=== PATIENT | female | born 1995 | race Caucasian/White ===

== ENCOUNTER 2017-07-26 21:07 | Emergency (ER) | payer OTHER ==
[~2017-07-26] VITALS: Ht 157.5 cm; Wt 52.2 kg
[~2017-07-26 21:07] MED LIST: AMOXICILLIN500 MG PO; DESPEC-DM TABL1 EACH PO; IRON1TAB4 PO; OSEL75CA PO; TUSSI PRES-B L120 M1 PO
[2017-07-27] MEDS ORDERED: IRON1TAB4 PO (03:23)
== END 2017-07-27 03:35 | disposition home or self-care (01) ==
LOC: ER 21:07
DX: K29.70 Gastritis, unspecified, without bleeding (principal); F06.4 Anxiety disorder due to known physiological condition

== ENCOUNTER 2017-12-23 16:19 | Emergency (ER) | payer OTHER ==
[~2017-12-23] VITALS: Ht 157.5 cm; Wt 57.2 kg
== END 2017-12-23 19:22 ==
LOC: ER 16:19
DX: N83.02 Follicular cyst of left ovary (principal); N93.8 Other specified abnormal uterine and vaginal bleeding

== ENCOUNTER 2018-02-18 15:48 | Emergency (ER) | payer OTHER ==
[~2018-02-18] VITALS: Ht 157.5 cm; Wt 55.8 kg
[2018-02-18] MEDS ORDERED: LORATADINE10 MG PO (18:49)
[2018-02-18] MEDS ORDERED: ZITHROMAX500 MG PO (18:49)
[2018-02-18] MEDS ORDERED: FLONASE ALLERG9.9 ML NASAL (18:49)
[2018-02-18] MEDS ORDERED: MUCINEX DM ER1 EAC1 PO (18:49)
== END 2018-02-18 18:56 | disposition home or self-care (01) ==
LOC: ER 15:48
DX: J06.9 Acute upper respiratory infection, unspecified (principal); J01.00 Acute maxillary sinusitis, unspecified

== ENCOUNTER 2019-04-06 13:11 | Emergency (ER) | payer OTHER ==
[~2019-04-06] VITALS: Ht 157.5 cm; Wt 54.9 kg
[~2019-04-06 13:11] MED LIST changes: +FLONASE ALLERG9.9 ML NASAL; +LORATADINE10 MG PO; +MUCINEX DM ER1 EAC1 PO; +ZITHROMAX500 MG PO
[2019-04-06] MEDS ORDERED: CLARITIN10 MG PO (15:52)
[2019-04-06] MEDS ORDERED: ZITHROMAX500 MG PO (15:52)
[2019-04-06] MEDS ORDERED: TUSNEL LIQUID178 ML PO (15:52)
== END 2019-04-06 16:00 | disposition home or self-care (01) ==
LOC: ER 13:11
DX: J06.9 Acute upper respiratory infection, unspecified (principal)

== ENCOUNTER 2019-08-08 20:33 | Emergency (ER) | payer OTHER ==
[~2019-08-08] VITALS: Ht 157.5 cm; Wt 55.3 kg
[~2019-08-08 20:33] MED LIST changes: +CLARITIN10 MG PO; +TUSNEL LIQUID178 ML PO
[2019-08-08] MEDS ORDERED: ZITHROMAX500 MG PO (21:44)
[2019-08-08] MEDS ORDERED: DOLOGEN CAPLET1 EACH PO (21:44)
[2019-08-08] MEDS ORDERED: TUSNEL LIQUID178 ML PO (21:44)
== END 2019-08-08 21:53 | disposition home or self-care (01) ==
LOC: ER 20:33
DX: J06.9 Acute upper respiratory infection, unspecified (principal); R51 Headache

== ENCOUNTER 2020-03-25 21:31 | Emergency (ER) | payer OTHER ==
[~2020-03-25] VITALS: Ht 157.5 cm; Wt 54.0 kg
[~2020-03-25 21:31] MED LIST changes: +DOLOGEN CAPLET1 EACH PO
[2020-03-26] MEDS ORDERED: ZOFRAN8 MG PO (01:17)
[2020-03-26] MEDS ORDERED: PEPCID40 MG PO (01:17)
== END 2020-03-26 01:41 | disposition home or self-care (01) ==
LOC: ER 21:31
DX: K29.60 Other gastritis without bleeding (principal); R10.13 Epigastric pain

== ENCOUNTER 2020-06-15 21:12 | Emergency (ER) | payer OTHER ==
[~2020-06-15] VITALS: Ht 157.5 cm; Wt 56.7 kg
[~2020-06-15 21:12] MED LIST changes: +PEPCID40 MG PO; +ZOFRAN8 MG PO
== END 2020-06-16 00:05 | disposition home or self-care (01) ==
LOC: ER 21:12
DX: J06.9 Acute upper respiratory infection, unspecified (principal); Z20.822 Contact with and (suspected) exposure to COVID-19

== ENCOUNTER 2020-06-19 20:41 | Emergency (ER) | payer OTHER ==
[~2020-06-19] VITALS: Ht 157.5 cm; Wt 56.7 kg
== END 2020-06-19 22:48 | disposition home or self-care (01) ==
LOC: ER 20:41
DX: U07.1 COVID-19 (principal); R53.81 Other malaise

== ENCOUNTER → 2020-08-30 | Emergency (ER) | payer OTHER | END | disposition left against medical advice (07) | LOC: ER 02:25 | DX: Z53.20 Procedure and treatment not carried out because of patient's decision for unspecified reasons (principal) ==

== ENCOUNTER 2021-03-22 15:27 | Emergency (ER) | payer OTHER ==
[~2021-03-22] VITALS: Ht 167.6 cm; Wt 68.0 kg
[2021-03-22] MEDS ORDERED: ZITHROMAX500 MG PO (17:53)
[2021-03-22] MEDS ORDERED: TUSNEL LIQUID178 ML PO (17:53)
[2021-03-22] MEDS ORDERED: ZYRTEC10 MG PO (17:53)
[2021-03-22] MEDS ORDERED: TERBINAFINE HC250 MG PO (17:55)
== END 2021-03-22 17:59 | disposition home or self-care (01) ==
LOC: ER 15:27
DX: J00 Acute nasopharyngitis [common cold] (principal); B35.4 Tinea corporis; Z03.818 Encounter for observation for suspected exposure to other biological agents ruled out

== ENCOUNTER → 2022-01-21 | Emergency (ER) | payer OTHER ==
[~2022-01-21] VITALS: Ht 157.5 cm; Wt 54.4 kg
[~2022-01-21] MED LIST changes: +MACRODANTIN100 M1 PO; +TERBINAFINE HC250 MG PO; +ZYRTEC10 MG PO
== END | disposition home or self-care (01) ==
LOC: ER 15:58
DX: R30.0 Dysuria (principal); N39.0 Urinary tract infection, site not specified

== ENCOUNTER 2022-05-21 02:00 | Emergency (ER) | payer OTHER ==
[~2022-05-21] VITALS: Ht 157.5 cm; Wt 59.0 kg
[2022-05-21] MEDS ORDERED: KETO10TA2 PO (03:35)
[2022-05-21] MEDS ORDERED: ORPHENADRINE C100 MG PO (03:35)
== END 2022-05-21 03:46 ==
LOC: ER 02:00
DX: R07.89 Other chest pain (principal); Z91.013 Allergy to seafood

== ENCOUNTER 2022-05-31 16:30 | Emergency (ER) | payer OTHER ==
[~2022-05-31] VITALS: Ht 157.5 cm; Wt 59.0 kg
[~2022-05-31 16:30] MED LIST changes: +KETO10TA2 PO; +ORPHENADRINE C100 MG PO
== END 2022-05-31 20:37 | disposition home or self-care (01) ==
LOC: ER 16:30
DX: M62.830 Muscle spasm of back (principal); Z91.013 Allergy to seafood

== ENCOUNTER 2022-10-02 12:00 | Emergency (ER) | payer OTHER ==
[~2022-10-02] VITALS: Ht 157.5 cm; Wt 59.0 kg
[2022-10-02] MEDS ORDERED: ABREVA2 GM TOP (13:34)
== END 2022-10-02 13:42 | disposition home or self-care (01) ==
LOC: ER 12:00
DX: B00.1 Herpesviral vesicular dermatitis (principal); Z91.013 Allergy to seafood

== ENCOUNTER 2024-03-28 07:42 | Emergency (ER) | payer OTHER ==
[~2024-03-28] VITALS: Ht 157.5 cm; Wt 59.0 kg
[~2024-03-28 07:42] MED LIST changes: +ABREVA2 GM TOP
[2024-03-28] MEDS ORDERED: FAMOTIDINE/PF 20 MG in 0.9 % SODIUM CHLORIDE 8 ML IV PUSH STA (08:33)
[2024-03-28] MEDS ORDERED: ONDANSETRON HCL 2 MG/ML VIAL IV ONE (08:45)
[2024-03-28] MEDS ORDERED: HYOSCYAMINE SULFATE 0.125 MG TAB.SUBL SL ONE (08:45)
[2024-03-28] MEDS ORDERED: DIPHENOXYLATE HCL/ATROPINE 1 UDTAB TABLET PO ONE (08:45)
[2024-03-28] MEDS ORDERED: 0.9 % SODIUM CHLORIDE 1,000 ML IV SCH (08:45)
[2024-03-28 09:12] LABS: HEMATOCRIT 39.2 % (36.0-45.00); HEMOGLOBIN 13.2 g/dL (12.0-15.00); MEAN CELL VOLUME 81.1 fL (80.00-100.00); MEAN CORPUSCULAR HEMOGLOBIN 27.2 pg (27.00-32.0); MEAN CORPUSCULAR HGB CONC 33.6 g/dl (32.0-36.0); PLATELET COUNT 138 K/uL (150-450); RED BLOOD COUNT 4.83 M/uL (4.00-6.00); RED CELL DISTRIBUTION WIDTH 14.9 % (11.5-14.5)
[2024-03-28 09:37] LABS: ALBUMIN 3.8 gm/dL (3.4-5.0); BILIRUBIN TOTAL 0.49 mg/dL (0.3-1.2); CALCIUM 9.3 mg/dL (8.5-10.1); CREATININE SERUM 0.69 mg/dL (0.55-1.02); GFR 99.23; GLOBULINA 3.8 G/DL (2.4-3.5); POTASSIUM 4.38 mEq/L (3.5-5.1); TOTAL PROTEIN 7.6 gm/dL (6.4-8.2)
[2024-03-28] MEDS ORDERED: METHYLPREDNISOLONE SOD SUCC 125 MG VIAL IV ONE (12:00)
[2024-03-28] MEDS ORDERED: KETOROLAC TROMETHAMINE 30 MG VIAL IV ONE (12:00)
[2024-03-28] MEDS ORDERED: ZOFRAN8 MG PO (12:17)
[2024-03-28] MEDS ORDERED: PEPCID AC20 MG PO (12:17)
== END 2024-03-28 12:28 | disposition home or self-care (01) ==
LOC: ER 07:44
PROVIDERS: General Practice
DX: R19.7 Diarrhea, unspecified (principal); R10.9 Unspecified abdominal pain; Z20.822 Contact with and (suspected) exposure to COVID-19; Z91.013 Allergy to seafood

== ENCOUNTER 2024-05-25 20:54 | Emergency (ER) | payer OTHER ==
[~2024-05-25] VITALS: Ht 162.6 cm; Wt 62.1 kg
[~2024-05-25 20:54] MED LIST changes: +PEPCID AC20 MG PO
[2024-05-26] MEDS ORDERED: KETOROLAC TROMETHAMINE 60 MG VIAL IM STA (01:25)
[2024-05-26] MEDS ORDERED: KETOROLAC TROMETHAMINE 60 MG VIAL IM ONE (01:31)
[2024-05-26 02:15] LABS: URINE APPEARANCE Cloudy; URINE BILIRRUBIN Negative (NEGATIVE); URINE BLOOD Negative; URINE COLOR Yellow; URINE GLUCOSE Negative (NEGATIVE); URINE KETONE Negative (NEGATIVE); URINE LEUKOCYTE Negative; URINE NITRATE Negative; URINE PROTEIN Negative (NEGATIVE); URINE UROBILINOGEN 0.2 E.U./dl
[2024-05-26 02:18] LABS: URINE BACTERIA 739.2 uL (0.0-1933); URINE EPITHELIAL CELLS 27.3 uL (0.0-38.8); URINE WBC 45.2 uL (0.0-23.2)
[2024-05-26 02:20] LABS: URINE CAST 0.58 uL (0.0-1.40); URINE RBC 1.1 uL (0.0-20.8)
[2024-05-26] MEDS ORDERED: CEPHALEXIN500 MG PO (04:22)
[2024-05-26] MEDS ORDERED: KETO10TA2 PO (04:22)
== END 2024-05-26 04:30 ==
LOC: ER 20:57
PROVIDERS: General Practice
DX: M54.9 Dorsalgia, unspecified (principal); Z91.013 Allergy to seafood; N39.0 Urinary tract infection, site not specified

== ENCOUNTER → 2024-07-25 | Emergency (ER) | payer OTHER ==
[~2024-07-25] VITALS: Ht 157.5 cm; Wt 63.5 kg
[~2024-07-25] MED LIST changes: +AZITHROMYCIN500 MG PO; +CEPHALEXIN500 MG PO; +GUAIFENESIN 200 MG/10 ML BLIST.PACK PO STA; +KETOROLAC TROMETHAMINE 10 MG TABLET PO STA; +MEDROLPACK PO; +SINGULAIR10 MG PO
[2024-07-25 07:29] LABS: HEMATOCRIT 37.7 % (36.0-45.00); HEMOGLOBIN 12.5 g/dL (12.0-15.00); MEAN CELL VOLUME 83.1 fL (80.00-100.00); MEAN CORPUSCULAR HEMOGLOBIN 27.5 pg (27.00-32.0); MEAN CORPUSCULAR HGB CONC 33.1 g/dl (32.0-36.0); PLATELET COUNT 193 K/uL (150-450); RED BLOOD COUNT 4.54 M/uL (4.00-6.00)
[2024-07-25 08:58] LABS: PH,URINE 5.5 (5.0-8.0); URINE APPEARANCE Clear; URINE BILIRRUBIN Negative (NEGATIVE); URINE BLOOD Negative; URINE COLOR Yellow; URINE GLUCOSE Negative (NEGATIVE); URINE KETONE Trace (NEGATIVE); URINE LEUKOCYTE Negative; URINE NITRATE Negative; URINE PROTEIN Negative (NEGATIVE)
[2024-07-25 08:59] LABS: URINE BACTERIA 31.8 uL (0.0-1933); URINE EPITHELIAL CELLS 4.1 uL (0.0-38.8); URINE WBC 7.1 uL (0.0-23.2)
[2024-07-25 09:08] LABS: URINE CAST 1.32 uL (0.0-1.40); URINE RBC 1.1 uL (0.0-20.8)
== END | disposition home or self-care (01) ==
LOC: ER 03:40
PROVIDERS: General Practice
DX: M54.89 Other dorsalgia (principal); R53.81 Other malaise; Z20.822 Contact with and (suspected) exposure to COVID-19; Z91.013 Allergy to seafood

== ENCOUNTER 2024-12-09 18:56 | Emergency (ER) | payer OTHER ==
[~2024-12-09] VITALS: Ht 157.5 cm; Wt 67.1 kg
[~2024-12-09 18:56] MED LIST changes: -GUAIFENESIN 200 MG/10 ML BLIST.PACK PO STA; -KETOROLAC TROMETHAMINE 10 MG TABLET PO STA
[2024-12-09] MEDS ORDERED: KETOROLAC TROMETHAMINE 30 MG VIAL IM ONE (20:15)
[2024-12-09] MEDS ORDERED: DEXAMETHASONE SODIUM PHOSPHATE 4 MG/ML VIAL IM ONE (20:30)
[2024-12-09] MEDS ORDERED: DEXAMETHASONE SODIUM PHOSPHATE 4 MG/ML VIAL ONE (20:31)
[2024-12-09] MEDS ORDERED: KETOROLAC TROMETHAMINE 30 MG VIAL ONE ×2 (20:31→21:24)
[2024-12-09] MEDS ORDERED: NORFLEX100MG PO (22:38)
[2024-12-09] MEDS ORDERED: DICLOFENAC SODI50 MG PO (22:38)
== END 2024-12-09 22:57 | disposition home or self-care (01) ==
LOC: ER 18:56
DX: M51.369 Other intervertebral disc degeneration, lumbar region without mention of lumbar back pain or lower extremity pain (principal); R53.1 Weakness; Z91.013 Allergy to seafood

== ENCOUNTER 2024-12-29 18:24 | Emergency (ER) | payer OTHER ==
[~2024-12-29] VITALS: Ht 157.5 cm; Wt 65.3 kg
[~2024-12-29 18:24] MED LIST changes: +DICLOFENAC SODI50 MG PO; +NORFLEX100MG PO
[2024-12-29] MEDS ORDERED: BENZONATATE 100 MG CAPSULE PO STA (19:22)
[2024-12-29 20:10] LABS: COVID-19 AG NEGATIVE (NEGATIVE)
[2024-12-29 20:20] LABS: BASO % 0.3 % (0.1-1.2); EOS # 0.03 (0.04-0.54); EOS % 0.5 % (0.7-7.0); LYMPH # 0.82 (1.18-3.74); LYMPH % 13.7 % (19.3-53.1); MEAN PLATELET VOLUME 10.60 fl (9.4-12.4); MONO # 0.57 (0.24-0.82); MONO % 9.5 % (4.7-12.5); NEUT # 4.54 (1.56-6.13); NEUT % 75.7 % (34.0-71.1); RED CELL DISTRIBUTION WIDTH 13.2 % (11.6-14.4)
[2024-12-29] MEDS ORDERED: BENZONATATE100 MG PO (20:49)
== END 2024-12-29 21:15 | disposition home or self-care (01) ==
LOC: ER 18:24
PROVIDERS: General Practice
DX: B34.9 Viral infection, unspecified (principal); D69.6 Thrombocytopenia, unspecified; Z20.822 Contact with and (suspected) exposure to COVID-19; Z91.013 Allergy to seafood